=== PATIENT | female | born 1990 | race Caucasian/White ===

== ENCOUNTER 2018-07-01 12:35 | Emergency (ER) | payer BC, OTHER ==
[~2018-07-01] VITALS: Ht 149.9 cm; Wt 63.5 kg
[2018-07-01 13:14] LABS: STREPTOCOCCUS GRP A ANTIGEN NEGATIVE (NEGATIVE)
[2018-07-01 13:35] LABS: INFLUENZAE A&B ANTIGEN (RAPID) NEGATIVE (NEGATIVE)
[2018-07-01 13:44] LABS: BILIRUBIN,URINE NEGATIVE (NEGATIVE); CLARITY,URINE CLEAR (CLEAR); COLOR,URINE YELLOW (YELLOW); KETONES,URINE NEGATIVE (NEGATIVE); LEUKOCYTE ESTERASE ,URINE NEGATIVE (NEGATIVE); NITRITE,URINE NEGATIVE (NEGATIVE); PROTEIN,URINE DIPSTICK NEGATIVE (NEGATIVE); URINE UROBILINOGEN 0.2 mg/dL (0.2 - 1)
[2018-07-01 13:49] LABS: PREGNANCY TEST, URINE POSITIVE (NEGATIVE)
[2018-07-01 14:04] LABS: BACTERIA,URINE MODERATE /HPF; EPITHELIAL CELLS,URINE MODERATE /LPF; WBC,URINE (MAN) 0-5 /HPF (0-5)
[2018-07-01 17:09] VITALS: BP 137/95
== END 2018-07-01 17:21 | disposition home or self-care (01) ==
LOC: ER 12:35
DX: B34.9 Viral infection, unspecified (principal)
CPT/HCPCS: 81001; 81025; 83518; 87070; 87400; 99283